=== PATIENT | male | born 2000 | race Caucasian/White ===

== ENCOUNTER 2023-04-03 13:10 | Emergency (ER) | payer BC, MEDICAID, SELFPAY ==
[2023-04-03 13:22] VITALS: BP 148/93; PULSE 80; RESP 18; TEMP 36.4; O2SAT 100; BMI 39.8
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
[2023-04-03] MEDS: ketorolac 60 mg/2 mL INJ IM (14:55)
[2023-04-03] MEDS: orphenadrine 30 mg/mL Inj 2 mL 60 MG IM (14:55)
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
--- NOTE | 2023-04-04 08:28 | DCPLANNER ---
Addendum entered by Arleen Alberto 04/11/23 14:45: food general manager received the following message from the ortho clinic regarding follow up appointment: attempt made to contact patient - # not accepting msgs right now - will mail letter to call clinic to schedule w/ dr cheek or gladys lewis. if he calls back today we will try to get in tomorrow w/ dr cheek Original Note: food general manager had message to schedule a follow up appointment for patient with ortho. food general manager sent patients information to the front office staff at ortho. Patients information will be printed and reviewed. Clinic will call patient with appointment information.
== END 2023-04-03 15:59 | disposition home or self-care (01) ==
PROVIDERS: Emergency Provider Physician Assistant; PCP Nurse Practitioner Family
DX: S32.048A Other fracture of fourth lumbar vertebra, initial encounter for closed fracture (principal); S39.92XA Unspecified injury of lower back, initial encounter; V89.2XXA Person injured in unspecified motor-vehicle accident, traffic, initial encounter
CPT/HCPCS: 72100; 96372; 99284; J1885; J2360

== ENCOUNTER → 2023-06-26 14:47 | Outpatient (BNVA) | payer BC, MEDICAID, SELFPAY | PROVIDERS: PCP Nurse Practitioner Family; Visit Provider Physician Assistant | DX: S32.049A Unspecified fracture of fourth lumbar vertebra, initial encounter for closed fracture (principal); V49.40XA Driver injured in collision with unspecified motor vehicles in traffic accident, initial encounter; M43.17 Spondylolisthesis, lumbosacral region | CPT/HCPCS: 72100 ==